=== PATIENT | female | born 1935 | race Caucasian/White ===

== ENCOUNTER 2017-01-07 10:22 | Day surgery (SDC) | payer SELFPAY ==
[2017-01-06 08:50] VITALS: BMI 23.8
[2017-01-07] MEDS ORDERED: LIDOCAINE 1%/EPI 1:100000 (20 ML MULTI DOSE VIAL) ONE ×2 (10:49→11:28)
[2017-01-07] MEDS ORDERED: BUPIVACAINE HCL/PF 0.5% (5MG/ML) 10 ML VIAL ONE (10:49)
[2017-01-07] MEDS ORDERED: EPINEPHrine/PF 1 MG/1 ML (1:1,000) AMPULE ONE (11:28)
[2017-01-07] MEDS ORDERED: PROPOFOL 20 ML ONE ×4 (11:42)
[2017-01-07] MEDS ORDERED: MIDAZOLAM HCL 2 MG/2 ML SINGLE DOSE VIAL ONE (11:43)
[2017-01-07] MEDS ORDERED: ceFAZolin SODIUM 1 GM VIAL ONE (12:17)
[2017-01-07] MEDS ORDERED: SODIUM CHLORIDE 0.9% P/F 10 ML VIAL IJ ONE (12:17)
[2017-01-07] MEDS ORDERED: BACITRACIN/POLYMYXIN OPH OINT 3.5 GM TUBE ONE (12:19)
[2017-01-07] MEDS ORDERED: ceFAZolin SODIUM 1 GM VIAL IVPB ONE (12:20)
[2017-01-07] MEDS ORDERED: LIDOCAINE HCL 2% JELLY (5 ML/TUBE) ONE (12:27)
[2017-01-07] MEDS ORDERED: MINERAL OIL 25 ML OIL ONE (13:39)
[2017-01-07] MEDS ORDERED: ONDANSETRON 4 MG/2 ML VIAL IVPUSH PRN (14:29)
[2017-01-07] MEDS ORDERED: oxyCODONE HCL 5 MG TABLET PO PRN (14:29)
[2017-01-07] MEDS ORDERED: ACETAMINOPHEN INJECTION 100 ML IVPB ONE (15:20)
[2017-01-07] MEDS: ACETAMINOPHEN 1000 MG/100 ML VIAL (NON FORMULARY) IVPB PRN ×2 (15:20→21:46)
[2017-01-07] MEDS: DEXTROSE 5%-LACTATED RINGERS 1,000 ML IV SCH (16:30)
--- NOTE | 2017-01-07 16:53 | OP ---
DATE OF OPERATION: 01/07/2017 PREOPERATIVE DIAGNOSIS: Dermatochalasis, facial and neck skin. POSTOPERATIVE DIAGNOSIS: Dermatochalasis, facial and neck skin. PROCEDURES DONE: 1. Secondary neck lift. 2. Secondary lower facelift. SURGEON: Mike Simental MD TYPE OF ANESTHESIA: IV sedation with local injections of a diluted solution of lidocaine with epinephrine with 0.25% Marcaine. ANESTHESIOLOGIST: DRAIN: One SANGEETA. DESCRIPTION OF PROCEDURE: Patient was brought to the operating room. Markings had been carried out prior. Patient was given IV sedation. At this time, standard procedure of timeout and identification was carried out. Skin was prepped with Betadine solution. Subcutaneous tissue was injected along the jawline as well as the neck with diluted solution of 1% lidocaine with epinephrine and Marcaine. Standard draping was carried out. Subcutaneous tissue was elevated using Metzenbaum scissors. Entire skin around the neck was elevated from the platysma. Most area was previous fibrosis, had to be elevated carefully. On the left side of the neck, penetration cut in an area where bleeding was noted. This had to be then controlled with digital pressure for several minutes. Once the bleeding was controlled, skin was elevated along the jawline up to the marionette's lines. A SANGEETA drain was then placed, bringing it out from right side of the infralobular area. Three incisions were made for this dissection, two along the ear lobe on the right and the left. The other one was in the midline below the chin. This incision was about 3 cm. Scar tissue had to be released between the platysma and the subcutaneous tissue. Once it was achieved, elevation of the skin was carried from the jawline to the clavicle area. Care was taken to prevent any injury to the esophagus or the trachea. Flaps were then reapplied in their position, and incision lines were closed with 4-0 Vicryl and 4-0 Prolene subcuticular. At the end of the procedure, circulation to the skin was satisfactory. A small incision was made in the lateral canthal area, and skin was elevated over the orbicularis oculi muscle. This was then repaired with 6-0 Prolene. Dressing consisting of Xeroform, bacitracin, Steri-Strips, 4 x 4's, and sterile Webril was followed by compression using Kerlix. Patient was then sent to recovery room in a satisfactory condition. Operating time: Less than 2 hours. Flex [id number]
[2017-01-08] MEDS: DEXTROSE 5%-LACTATED RINGERS 1,000 ML IV SCH (05:38)
[2017-01-08 10:53] VITALS: BP 127/74; PULSE 84; TEMP 97.5
== END 2017-01-08 11:45 | disposition home or self-care (01) ==
LOC: JASU-SURG 10:22 → J6S 15:45 → JASU-SURG 01-08 11:45
PROVIDERS: ATTEND Plastic Surgery
CPT/HCPCS: 94760